=== PATIENT | female | born 1935 | race Hispanic/Latino ===

== ENCOUNTER 2017-10-04 18:53 | Emergency (ER) | payer MEDICARE ==
[2017-10-04 20:31] LABS: BASOPHILS % (AUTO) 0.9 % (0.0-5.0); EOSINOPHILS % (AUTO) 5.1 % (0.0-8.0); HEMATOCRIT 46.6 % (36-48); LYMPHOCYTES % (AUTO) 15.9 % (21.0-51.0); MEAN CORPUSCULAR HEMOGLOBIN 27.1 pg (27.0-33.0); MEAN CORPUSCULAR HGB CONC 32.7 g/dL (32.0-36.0); MEAN CORPUSCULAR VOLUME 82.8 fL (79-99); MONOCYTES % (AUTO) 10.1 % (3.0-13.0); PLATELET COUNT (AUTO) 590 K/uL (130-400); RED BLOOD CELL COUNT(AUTO) 5.63 MIL/uL (4.00-5.50); RED CELL DISTRIBUTION WIDTH 22.1 % (11.0-15.5); WHITE BLOOD COUNT (AUTO) 8.1 K/uL (4.8-10.8)
[2017-10-04 20:45] LABS: CREATININE 0.8 mg/dL (0.5-1.5)
[2017-10-04 20:47] LABS: APPEARANCE,URINE Clear (CLEAR); BILIRUBIN,URINE Negative (NEGATIVE); COLOR,URINE Yellow (YELLOW); GLUCOSE, URINE (UA) Negative (NEGATIVE); KETONES,URINE Negative (NEGATIVE); LEUKOCYTE ESTERASE ,URINE Negative (NEGATIVE); NITRATE,URINE Negative (NEGATIVE); OCCULT BLOOD,URINE Negative (NEGATIVE); PROTEIN,URINE Negative (NEGATIVE); UROBILINOGEN,URINE 0.2 mg/dL (0.2-1.0)
[2017-10-04 20:50] LABS: ALBUMIN 3.8 g/dL (3.5-5.0); BILIRUBIN,TOTAL 0.4 mg/dL (0.2-1.0); TOTAL PROTEIN, SERUM 7.3 g/dL (6.0-8.3)
[2017-10-04] MEDS ORDERED: SODIUM CHLORIDE 0.9% 1000ML 1,000 ML IV ONE (21:10)
[2017-10-04] MEDS ORDERED: ONDANSETRON HCL MDV 20ML 2 MG/ML VIAL ONE (21:11)
[2017-10-04] MEDS ORDERED: KETOROLAC TROMETHAMINE 30MG/ML ONE (21:11)
[2017-10-04] MEDS ORDERED: IOPAMIDOL-370 75 ML VIAL IV ONE (21:12)
== END 2017-10-04 22:59 | disposition home or self-care (01) ==
LOC: EDH 18:53
DX: K59.00 Constipation, unspecified (principal); D47.3 Essential (hemorrhagic) thrombocythemia; Z88.1 Allergy status to other antibiotic agents; Z88.6 Allergy status to analgesic agent; Z88.8 Allergy status to other drugs, medicaments and biological substances
CPT/HCPCS: 36415; 74177; 80053; 81003; 82550; 83690; 84484; 85025; 93005; 96361; 96374; 96375; 99285; J1885; J7030; Q9967

== ENCOUNTER → 2018-01-16 | Outpatient (CLI) | payer MEDICARE | END | disposition home or self-care (01) | LOC: RAH 10:24 | PROVIDERS: ATTEND Internal Medicine | DX: R60.9 Edema, unspecified (principal); I10 Essential (primary) hypertension | CPT/HCPCS: 93970 ==

== ENCOUNTER → 2018-10-01 | Outpatient (CLI) | payer MEDICARE | END | disposition home or self-care (01) | LOC: RAH 13:24 | PROVIDERS: ATTEND Internal Medicine | DX: N39.8 Other specified disorders of urinary system (principal); N89.4 Leukoplakia of vagina; R32 Unspecified urinary incontinence | CPT/HCPCS: 76770 ==

== ENCOUNTER → 2018-12-05 | Outpatient (CLI) | payer MEDICARE | END | disposition home or self-care (01) | LOC: RAH 08:49 | PROVIDERS: ATTEND Internal Medicine | DX: R10.11 Right upper quadrant pain (principal) | CPT/HCPCS: 76700 ==

== ENCOUNTER 2019-04-15 14:14 | Inpatient (IN) | payer MEDICARE ==
[~2019-04-15] VITALS: Ht 157.5 cm; Wt 49.7 kg
[2019-04-15] MEDS ORDERED: ACETAMINOPHEN EXTRA STRENGTH 500 MG TABLET ONE (16:36)
[2019-04-15 16:45] LABS: BASOPHILS % (AUTO) 1.9 % (0.0-5.0); EOSINOPHILS % (AUTO) 2.5 % (0.0-8.0); HEMATOCRIT 43.5 % (36-48); LYMPHOCYTES % (AUTO) 15.5 % (21.0-51.0); MEAN CORPUSCULAR HEMOGLOBIN 28.8 pg (27.0-33.0); MEAN CORPUSCULAR HGB CONC 31.9 g/dL (32.0-36.0); MEAN CORPUSCULAR VOLUME 90.4 fL (79-99); MONOCYTES % (AUTO) 9.3 % (3.0-13.0); NEUTROPHILS % (AUTO) 70.8 % (40.0-77.0); NUCLEATED RED BLOOD CELLS 0.2 % (0.0-0.19); PLATELET COUNT (AUTO) 355 K/uL (130-400); RED BLOOD CELL COUNT(AUTO) 4.81 MIL/uL (4.00-5.50); RED CELL DISTRIBUTION WIDTH 20.7 % (11.0-15.5); WHITE BLOOD COUNT (AUTO) 7.3 K/uL (4.8-10.8)
[2019-04-15 16:59] LABS: CREATININE 0.6 mg/dL (0.5-1.5); POTASSIUM 4.3 mmol/L (3.5-5.1)
[2019-04-15 17:04] LABS: ALBUMIN 4.1 g/dL (3.5-5.0); BILIRUBIN,TOTAL 0.6 mg/dL (0.2-1.0); TOTAL PROTEIN, SERUM 7.2 g/dL (6.0-8.3)
[2019-04-15 17:19] LABS: INR 1.02 (0.85-1.15); PARTIAL THROMBOPLASTIN TIME 30.8 SEC (26.3-35.5); PROTHROMBIN TIME 10.7 SEC (9.6-11.6)
[2019-04-15] MEDS ORDERED: MORPHINE SULFATE 2 MG/ML 1ML SYG IV PRN (18:00)
[2019-04-15] MEDS ORDERED: HYDROCODONE/ACETAMINOPHEN 5/325 MG TAB PO PRN (18:00)
[2019-04-15] MEDS ORDERED: LACTULOSE 20 GM/30 ML UDCUP PO PRN (18:00)
[2019-04-15] MEDS ORDERED: ONDANSETRON HCL 4 MG/2 ML VIAL IV PRN (18:00)
[2019-04-15] MEDS: SODIUM CHLORIDE 0.9% 1000ML 1,000 ML IV SCH (21:22)
[2019-04-15] MEDS: ACETAMINOPHEN 325 MG TAB PO PRN (23:49)
[2019-04-16] VITALS (25 sets, daily range): BP systolic 114–152; BP diastolic 58–89
[2019-04-16 03:56] LABS: BASOPHILS % (AUTO) 2.4 % (0.0-5.0); EOSINOPHILS % (AUTO) 2.5 % (0.0-8.0); HEMATOCRIT 38.1 % (36-48); LYMPHOCYTES % (AUTO) 17.6 % (21.0-51.0); MEAN CORPUSCULAR HEMOGLOBIN 29.3 pg (27.0-33.0); MEAN CORPUSCULAR HGB CONC 32.3 g/dL (32.0-36.0); MEAN CORPUSCULAR VOLUME 90.7 fL (79-99); MONOCYTES % (AUTO) 13.3 % (3.0-13.0); NEUTROPHILS % (AUTO) 64.2 % (40.0-77.0); NUCLEATED RED BLOOD CELLS 0.1 % (0.0-0.19); PLATELET COUNT (AUTO) 309 K/uL (130-400); RED BLOOD CELL COUNT(AUTO) 4.21 MIL/uL (4.00-5.50); RED CELL DISTRIBUTION WIDTH 20.2 % (11.0-15.5)
[2019-04-16] MEDS ORDERED: HYDR500C2 PO (04:05)
[2019-04-16] MEDS ORDERED: FOLI1TAB15 PO (04:05)
[2019-04-16] MEDS ORDERED: LIFI1DRO OP (04:09)
[2019-04-16 04:12] LABS: CREATININE 0.6 mg/dL (0.5-1.5); POTASSIUM 3.9 mmol/L (3.5-5.1)
[2019-04-16] MEDS ORDERED: HYDRALAZINE HCL 20 MG/ML VIAL IV PRN ×2 (04:15→05:30)
--- NOTE | 2019-04-16 07:30 | NUR ---
AM NOTE Awake, alert, and oriented x3. Assisted to bathroom, steady gait noted. Dr. Corea in to see pt, update given, new orders received and will carry out. Instructed on use of call light, verbalized understanding. Sinus mechanism in 80s.
[2019-04-16] MEDS: FAMOTIDINE/PF 20 MG/2 ML VIAL IV SCH (08:03)
[2019-04-16] MEDS: ACETAMINOPHEN 325 MG TAB PO PRN (08:09)
[2019-04-16] MEDS: SODIUM CHLORIDE 0.9% 1000ML 1,000 ML IV SCH (10:18)
--- NOTE | 2019-04-16 11:30 | NUR ---
DYSPHAGIA EVCATIA COMPLETED. -S/S OF ASPIRATION. RECOMMEND REGULAR TEXTURE, THIN LIQUIDS, PILLS WHOLE WITH LIQUIDS. Addendum: 04/17/19 at 0710 by RACHNA NIÑO, [facility] Amended: Links added.
--- NOTE | 2019-04-16 14:06 | NUR ---
DC PLAN VISITED WITH PATIENT. PATIENT LIVES WITH SPOUSE. INDEPENDENT ABLE TO PERFORM SOME ADL'S. PATIENT HAS PROVIDER 33 HRS A WEEK. USES A CANE. FEELS SAFE TOR RETURN HOME. Addendum: 04/16/19 at 1407 by MATHEUS MACK RN CM Amended: Links added.
[2019-04-16] MEDS ORDERED: FOLIC ACID 1 MG TABLET PO SCH (21:00)
[2019-04-17] VITALS: BP 151/72
[2019-04-17 04:00] VITALS: BP 142/79
[2019-04-17] MEDS: ACETAMINOPHEN 325 MG TAB PO PRN (05:11)
[2019-04-17 07:32] VITALS: BP 145/89
[2019-04-17] MEDS ORDERED: HYDROXYUREA 500 MG CAP PO SCH (09:00)
[2019-04-17] MEDS: FAMOTIDINE/PF 20 MG/2 ML VIAL IV SCH (09:18)
[2019-04-17 11:00] VITALS: BP 135/75
== END 2019-04-17 17:00 | disposition home or self-care (01) | DRG 87 ==
LOC: EDH 14:14 → EDHIP 17:47 → 2BH 20:07 → 4BH 04-16 23:02
PROVIDERS: ADMIT Internal Medicine; ATTEND Internal Medicine
DX: S06.5X0A Traumatic subdural hemorrhage without loss of consciousness, initial encounter (principal); E04.2 Nontoxic multinodular goiter; E78.5 Hyperlipidemia, unspecified; I10 Essential (primary) hypertension; M19.90 Unspecified osteoarthritis, unspecified site; M47.812 Spondylosis without myelopathy or radiculopathy, cervical region; W01.0XXA Fall on same level from slipping, tripping and stumbling without subsequent striking against object, initial encounter; Y93.89 Activity, other specified; Y92.89 Other specified places as the place of occurrence of the external cause; Y99.8 Other external cause status; Z85.3 Personal history of malignant neoplasm of breast; Z88.0 Allergy status to penicillin; Z88.8 Allergy status to other drugs, medicaments and biological substances
CPT/HCPCS: 36415; 70450; 72125; 73110; 73521; 80048; 80053; 85025; 85610; 85730; 92610; 93005; G0378; J3490; J7030

== ENCOUNTER → 2019-04-29 | Outpatient (CLI) | payer MEDICARE ==
[~2019-04-29] MED LIST: FOLI1TAB15 PO; HYDR500C2 PO; LIFI1DRO OP
== END | disposition home or self-care (01) ==
LOC: RAH 10:58
PROVIDERS: ATTEND Neurological Surgery
DX: G31.9 Degenerative disease of nervous system, unspecified (principal); S06.5X0A Traumatic subdural hemorrhage without loss of consciousness, initial encounter; R90.82 White matter disease, unspecified; X58.XXXA Exposure to other specified factors, initial encounter; Y93.89 Activity, other specified; Y92.89 Other specified places as the place of occurrence of the external cause; Y99.8 Other external cause status
CPT/HCPCS: 70450

== ENCOUNTER 2019-05-17 14:38 | Inpatient (IN) | payer MEDICARE ==
[~2019-05-17] VITALS: Ht 160 cm; Wt 46.6 kg
[~2019-05-17 14:38] MED LIST changes: -ASPI-555 PO; -FOLIC ACID PO
[2019-05-17] MEDS ORDERED: ENOXAPARIN SODIUM 60 MG/0.6 ML SQ ONE (17:13)
[2019-05-17 17:36] LABS: CREATININE 0.7 mg/dL (0.5-1.5); POTASSIUM 4.7 mmol/L (3.5-5.1)
[2019-05-17 17:38] LABS: BASOPHILS % (AUTO) 2.9 % (0.0-5.0); EOSINOPHILS % (AUTO) 3.3 % (0.0-8.0); HEMATOCRIT 40.2 % (36-48); INR 1.05 (0.85-1.15); LYMPHOCYTES % (AUTO) 17.7 % (21.0-51.0); MEAN CORPUSCULAR HEMOGLOBIN 29.4 pg (27.0-33.0); MEAN CORPUSCULAR HGB CONC 31.8 g/dL (32.0-36.0); MEAN CORPUSCULAR VOLUME 92.5 fL (79-99); MONOCYTES % (AUTO) 14.9 % (3.0-13.0); NEUTROPHILS % (AUTO) 61.2 % (40.0-77.0); NUCLEATED RED BLOOD CELLS 0.2 % (0.0-0.19); PARTIAL THROMBOPLASTIN TIME 31.7 SEC (26.3-35.5); RED BLOOD CELL COUNT(AUTO) 4.35 MIL/uL (4.00-5.50); RED CELL DISTRIBUTION WIDTH 24.2 % (11.0-15.5)
[2019-05-17 17:40] LABS: BILIRUBIN,TOTAL 0.5 mg/dL (0.2-1.0); PLATELET COUNT (AUTO) 801 K/uL (130-400); TOTAL PROTEIN, SERUM 7.6 g/dL (6.0-8.3)
[2019-05-17 18:40] VITALS: BP 176/81
[2019-05-17] MEDS ORDERED: PHARMACY COMMUNICATION MISC SCH (19:15)
[2019-05-17] MEDS ORDERED: SODIUM CHLORIDE 0.9% 10 ML VIAL IVP PRN (19:15)
[2019-05-17] MEDS ORDERED: ACETAMINOPHEN 325 MG TAB PO PRN (19:15)
[2019-05-17] MEDS ORDERED: ONDANSETRON HCL 4 MG/2 ML VIAL IVP PRN (19:15)
[2019-05-17] MEDS ORDERED: TEMAZEPAM 7.5 MG CAPSULE PO PRN (19:15)
--- NOTE | 2019-05-17 19:50 | NUR ---
Admission assessment Only report received from Yanet DAVIS that pt came up from [facility] at 1830. Chart reviewed, meet with the pt, noted alone, no family initially. Routine admission assessment done, plan of care discuss, currently denies discomfort. Per pt claimed that her problem is her bilateral lower extremities. Noted +2 edema which pt claimed swelling much better at this time. Pt instructed on complete bedrest due to (+) DVT. Pt declined to use the bedpan, provided BSC, agreed. Pt declined to signed any of the admission papers prefers for her sister to sign which she will be coming in later. Pt noted very poor historian, everything she prefers for me to ask her sister Clara.
--- NOTE | 2019-05-17 20:00 | NUR ---
Re: Pt's sister Pt's sister Clara Arzola # [phone] showed up at this time, obtained family history, able to complete admission data base by verifying with pt's previous admission. Stated she does take care of the pt at home. Home medication updated, stated that pt has been seeing Dr. Beltrán re: thrombocytopenia & is on Hydroxyurea. Re: Flu / Pneumonia vaccination, stated pt is current.
[2019-05-17] MEDS ORDERED: ACETAMINOPHEN 325 MG TAB ONE (20:18)
[2019-05-17] MEDS ORDERED: FOLIC ACID PO ×2 (20:52)
[2019-05-17] MEDS ORDERED: LIFI1DRO OP ×2 (20:52)
[2019-05-17] MEDS ORDERED: ASPI-555 PO ×2 (20:52)
[2019-05-17 23:38] VITALS: BP 133/71
[2019-05-18 03:20] VITALS: BP 133/77
[2019-05-18] MEDS ORDERED: ACETAMINOPHEN 325 MG TAB PO PRN ×2 (04:45)
[2019-05-18 08:00] VITALS: BP 152/80
[2019-05-18] MEDS: ENOXAPARIN SODIUM 60 MG/0.6 ML SQ SCH ×2 (09:30→20:57)
[2019-05-18 11:00] VITALS: BP 130/67
[2019-05-18] MEDS ORDERED: HYDROXYUREA 500 MG CAP PO SCH ×3 (13:15→17:00)
[2019-05-18 16:00] VITALS: BP 136/79
--- NOTE | 2019-05-18 16:08 | NUR ---
HEMATOLOGY CONSULT Dr. Beltrán was called and notified of consult. Stated he will come to evaluate patient.
--- NOTE | 2019-05-18 16:08 | NUR ---
INITIAL: Met w pt and sister Clara this afternoon to discuss dcp. Prior to admission pt was living w her sisters. She uses a cane or walker for ambulation. She requires assistance w ADLs. Pt has provider services but is unable to recall #hrs. Per pt and sister they feel safe and comfortable returning home at the time of discharge. CM to continue to follow and wait for Md recommendations. Addendum: 05/18/19 at 1610 by ESTELA GARCIA CM Amended: Links added.
[2019-05-18] MEDS ORDERED: FOLIC ACID 1 MG TABLET PO SCH (17:00)
[2019-05-18] MEDS ORDERED: LACTULOSE 20 GM/30 ML UDCUP PO PRN (20:15)
[2019-05-18 20:43] VITALS: BP 152/85
[2019-05-18 23:57] VITALS: BP 136/81
[2019-05-19 04:05] VITALS: BP 145/81
[2019-05-19 05:00] LABS: BASOPHILS % (AUTO) 2.2 % (0.0-5.0); HEMATOCRIT 38.2 % (36-48); LYMPHOCYTES % (AUTO) 23.6 % (21.0-51.0); MEAN CORPUSCULAR HEMOGLOBIN 29.2 pg (27.0-33.0); MEAN CORPUSCULAR HGB CONC 31.8 g/dL (32.0-36.0); MEAN CORPUSCULAR VOLUME 91.8 fL (79-99); MONOCYTES % (AUTO) 15.7 % (3.0-13.0); NEUTROPHILS % (AUTO) 54.5 % (40.0-77.0); NUCLEATED RED BLOOD CELLS 0.1 % (0.0-0.19); PLATELET COUNT (AUTO) 691 K/uL (130-400); RED BLOOD CELL COUNT(AUTO) 4.17 MIL/uL (4.00-5.50); RED CELL DISTRIBUTION WIDTH 23.4 % (11.0-15.5); WHITE BLOOD COUNT (AUTO) 7.8 K/uL (4.8-10.8)
[2019-05-19 05:08] LABS: CREATININE 0.7 mg/dL (0.5-1.5); POTASSIUM 4.5 mmol/L (3.5-5.1)
[2019-05-19 05:48] LABS: PLATELET MORPHOLOGY LARGE PLTS PRESENT
[2019-05-19 07:58] VITALS: BP 135/72
[2019-05-19] MEDS ORDERED: HYDROXYUREA 500 MG CAP PO SCH ×2 (09:00)
[2019-05-19] MEDS ORDERED: XIIDRA PO SCH (09:00)
[2019-05-19] MEDS ORDERED: ASPIRIN 81 MG EC TAB PO SCH (09:00)
--- NOTE | 2019-05-19 10:00 | NUR ---
DR. OLMOS Paged Dr. Olmos again to notify him of patient's history of subdural hematoma. Pending for him to come back.
[2019-05-19 11:00] VITALS: BP 123/70
--- NOTE | 2019-05-19 11:34 | NUR ---
FOOD SERVICE SPECIALIST VISIT Dr. Beltrán came to see patient and he was updated on Hx of subdural hematoma. Stated he checked the images of the report for legs and that patient does not have DVTs, only superficial blood clots and to stop lovenox S/T risk. To continue on aspirin, hydroxyurea and folic acid. He asked to tell IS PROJECT MANAGER Brooklynn Simmons to call him and she was updated. Patient's sister was not present in the room; she will be updated when she comes back.
[2019-05-19 16:00] VITALS: BP 154/86
== END 2019-05-19 17:20 | disposition home or self-care (01) | DRG 301 ==
LOC: EDH 14:38 → 3AH 17:31
PROVIDERS: ADMIT Internal Medicine; ATTEND Internal Medicine
DX: I80.03 Phlebitis and thrombophlebitis of superficial vessels of lower extremities, bilateral (principal); I10 Essential (primary) hypertension; D47.3 Essential (hemorrhagic) thrombocythemia; M19.90 Unspecified osteoarthritis, unspecified site; Z86.73 Personal history of transient ischemic attack (TIA), and cerebral infarction without residual deficits; Z88.0 Allergy status to penicillin; Z88.8 Allergy status to other drugs, medicaments and biological substances
CPT/HCPCS: 36415; 80048; 80053; 85025; 85610; 85730; G0378; J1650

== ENCOUNTER → 2019-05-17 | Outpatient (CLI) | payer MEDICARE ==
[~2019-05-17] MED LIST changes: +ASPI-555 PO; +FOLIC ACID PO
== END | disposition home or self-care (01) ==
LOC: RAH 13:04
PROVIDERS: ATTEND Internal Medicine
DX: I82.4Z3 Acute embolism and thrombosis of unspecified deep veins of distal lower extremity, bilateral (principal)
CPT/HCPCS: 93970

== ENCOUNTER 2019-12-14 12:08 | Inpatient (IN) | payer MEDICARE ==
[~2019-12-14] VITALS: Ht 162.6 cm; Wt 52.4 kg
[~2019-12-14 12:08] MED LIST changes: +ASPI-556 PO; -FOLI1TAB15 PO; +FOLIC ACID PO
[2019-12-14 12:47] LABS: INR 1.02 (0.85-1.15); PARTIAL THROMBOPLASTIN TIME 27.8 SEC (26.3-35.5)
[2019-12-14 12:53] LABS: CREATININE 0.8 mg/dL (0.5-1.5); POTASSIUM 4.2 mmol/L (3.5-5.1)
[2019-12-14 12:56] LABS: BASOPHILS % (AUTO) 0.2 % (0.0-5.0); EOSINOPHILS % (AUTO) 2.5 % (0.0-8.0); LYMPHOCYTES % (AUTO) 14.8 % (21.0-51.0); MEAN CORPUSCULAR HEMOGLOBIN 32.5 pg (27.0-33.0); MEAN CORPUSCULAR HGB CONC 30.7 g/dL (32.0-36.0); MONOCYTES % (AUTO) 15.9 % (3.0-13.0); NEUTROPHILS % (AUTO) 57.6 % (40.0-77.0); NUCLEATED RED BLOOD CELLS 0.7 % (0.0-0.19); RED BLOOD CELL COUNT(AUTO) 1.66 MIL/uL (4.00-5.50); RED CELL DISTRIBUTION WIDTH 24.3 % (11.0-15.5); WHITE BLOOD COUNT (AUTO) 8.9 K/uL (4.8-10.8)
[2019-12-14 13:03] LABS: ALBUMIN 3.7 g/dL (3.5-5.0); BILIRUBIN,TOTAL 0.5 mg/dL (0.2-1.0); TOTAL PROTEIN, SERUM 6.5 g/dL (6.0-8.3)
[2019-12-14 13:03] LABS: HEMATOCRIT 17.6 % (36-48); PLATELET COUNT (AUTO) 8 K/uL (130-400)
[2019-12-14 14:11] LABS: PLATELET MORPHOLOGY COMMENT MARKED DECREASE
[2019-12-14] MEDS ORDERED: SODIUM CHLORIDE 0.9% 250 ML IV ONE ×2 (16:59→23:57)
[2019-12-14] MEDS ORDERED: ACETAMINOPHEN 325 MG TAB PO PRN (17:15)
[2019-12-14 19:00] VITALS: BP 146/79
[2019-12-14] MEDS: FAMOTIDINE/PF 20 MG/2 ML VIAL IV SCH (20:33)
[2019-12-14 23:00] VITALS: BP 135/69
[2019-12-14 23:35] LABS: HEMATOCRIT 21.5 % (36-48)
[2019-12-15 03:00] VITALS: BP 130/67
[2019-12-15 05:05] LABS: BASOPHILS % (AUTO) 0.3 % (0.0-5.0); EOSINOPHILS % (AUTO) 0.2 % (0.0-8.0); HEMATOCRIT 24.4 % (36-48); LYMPHOCYTES % (AUTO) 13.3 % (21.0-51.0); MEAN CORPUSCULAR HEMOGLOBIN 31.8 pg (27.0-33.0); MEAN CORPUSCULAR HGB CONC 33.2 g/dL (32.0-36.0); MEAN CORPUSCULAR VOLUME 95.7 fL (79-99); MONOCYTES % (AUTO) 15.3 % (3.0-13.0); NEUTROPHILS % (AUTO) 61.2 % (40.0-77.0); NUCLEATED RED BLOOD CELLS 1.1 % (0.0-0.19); PLATELET COUNT (AUTO) 40 K/uL (130-400); RED BLOOD CELL COUNT(AUTO) 2.55 MIL/uL (4.00-5.50); RED CELL DISTRIBUTION WIDTH 21.6 % (11.0-15.5); WHITE BLOOD COUNT (AUTO) 9.4 K/uL (4.8-10.8)
[2019-12-15 05:26] LABS: ALBUMIN 3.3 g/dL (3.5-5.0); BILIRUBIN,TOTAL 1.1 mg/dL (0.2-1.0); CREATININE 0.6 mg/dL (0.5-1.5); POTASSIUM 3.9 mmol/L (3.5-5.1)
[2019-12-15 07:49] VITALS: BP 140/72
[2019-12-15] MEDS: FAMOTIDINE/PF 20 MG/2 ML VIAL IV SCH ×2 (08:38→20:30)
--- NOTE | 2019-12-15 11:45 | NUR ---
Pt was found confuse walking outside her room by Nancy Gupta NP and immediately was place back in her bed. After several question pt recognized that she was confused and verbalized she was sorry. Two hours later she was found confuse again walking out the room. USHA Gupta aware is aware of the situation.
[2019-12-15 12:00] VITALS: BP 136/72
[2019-12-15 16:29] VITALS: BP 133/71
--- NOTE | 2019-12-15 17:23 | NUR ---
D/C PLAN CM spoke to patient's sister named Clara Arzola. Pt is currently with [facility]. States pt lives with her sister who is also her provider. Denies having any home health. Reports patient has wk, w/c, cane, shower chair, and bsc. CM discussed possible short term snf/rehab. Sister declined at this time. Prefers to take pt home. CM to f/u. Addendum: 12/15/19 at 1726 by KRISH ANDERSON CM Amended: Links added.
[2019-12-15 19:00] VITALS: BP 148/70
[2019-12-15 22:58] VITALS: BP 139/64
[2019-12-16 03:00] VITALS: BP 137/70
[2019-12-16 05:21] LABS: BASOPHILS % (AUTO) 0.5 % (0.0-5.0); EOSINOPHILS % (AUTO) 1.4 % (0.0-8.0); LYMPHOCYTES % (AUTO) 10.6 % (21.0-51.0); MEAN CORPUSCULAR HEMOGLOBIN 31.2 pg (27.0-33.0); MEAN CORPUSCULAR HGB CONC 32.8 g/dL (32.0-36.0); MEAN CORPUSCULAR VOLUME 95.1 fL (79-99); NEUTROPHILS % (AUTO) 57.1 % (40.0-77.0); NUCLEATED RED BLOOD CELLS 0.7 % (0.0-0.19); PLATELET COUNT (AUTO) 21 K/uL (130-400); RED BLOOD CELL COUNT(AUTO) 2.63 MIL/uL (4.00-5.50); WHITE BLOOD COUNT (AUTO) 8.8 K/uL (4.8-10.8)
[2019-12-16 05:41] LABS: ALBUMIN 3.2 g/dL (3.5-5.0); BILIRUBIN,TOTAL 1.4 mg/dL (0.2-1.0); CREATININE 0.7 mg/dL (0.5-1.5); POTASSIUM 3.6 mmol/L (3.5-5.1); TOTAL PROTEIN, SERUM 6.1 g/dL (6.0-8.3)
[2019-12-16 08:28] VITALS: BP 126/63
[2019-12-16] MEDS: FAMOTIDINE/PF 20 MG/2 ML VIAL IV SCH ×2 (09:22→21:25)
[2019-12-16 11:16] VITALS: BP 122/58
[2019-12-16 16:00] VITALS: BP 122/61
[2019-12-16 20:22] VITALS: BP 114/69
[2019-12-16 23:23] VITALS: BP 142/75
[2019-12-17] VITALS (7 sets, daily range): BP systolic 63–150; BP diastolic 59–74
[2019-12-17 05:59] LABS: BASOPHILS % (AUTO) 0.3 % (0.0-5.0); HEMATOCRIT 25.1 % (36-48); LYMPHOCYTES % (AUTO) 15.4 % (21.0-51.0); MEAN CORPUSCULAR HGB CONC 32.3 g/dL (32.0-36.0); MEAN CORPUSCULAR VOLUME 96.2 fL (79-99); MONOCYTES % (AUTO) 17.5 % (3.0-13.0); NEUTROPHILS % (AUTO) 58.3 % (40.0-77.0); NUCLEATED RED BLOOD CELLS 0.7 % (0.0-0.19); PLATELET COUNT (AUTO) 18 K/uL (130-400); RED BLOOD CELL COUNT(AUTO) 2.61 MIL/uL (4.00-5.50); RED CELL DISTRIBUTION WIDTH 22.4 % (11.0-15.5); WHITE BLOOD COUNT (AUTO) 5.7 K/uL (4.8-10.8)
[2019-12-17 06:15] LABS: ALBUMIN 3.1 g/dL (3.5-5.0); BILIRUBIN,TOTAL 0.9 mg/dL (0.2-1.0); CREATININE 0.7 mg/dL (0.5-1.5); POTASSIUM 3.7 mmol/L (3.5-5.1)
[2019-12-17] MEDS: FOLIC ACID 1 MG TABLET PO SCH (09:23)
[2019-12-17] MEDS: FAMOTIDINE/PF 20 MG/2 ML VIAL IV SCH ×2 (09:23→21:19)
[2019-12-17] MEDS: POLYETHYLENE GLYCOL 3350 17 GM POWD.PACK PO SCH (17:33)
[2019-12-18 04:05] VITALS: BP 139/65
[2019-12-18 04:55] LABS: HEMATOCRIT 27.3 % (36-48); MEAN CORPUSCULAR HEMOGLOBIN 30.5 pg (27.0-33.0); MEAN CORPUSCULAR HGB CONC 31.5 g/dL (32.0-36.0); MEAN CORPUSCULAR VOLUME 96.8 fL (79-99); NUCLEATED RED BLOOD CELLS 0.7 % (0.0-0.19); RED BLOOD CELL COUNT(AUTO) 2.82 MIL/uL (4.00-5.50); RED CELL DISTRIBUTION WIDTH 21.9 % (11.0-15.5)
[2019-12-18 05:32] LABS: PLATELET COUNT (AUTO) 9 K/uL (130-400)
--- NOTE | 2019-12-18 05:40 | NUR ---
CRITICAL LAB VALUES PLT 8. PAGED INDUSTRIAL PSYCHOLOGIST. PENDING BELINDA JAUREGUI TO RETURN PAGE.
--- NOTE | 2019-12-18 05:54 | NUR ---
HUI RETURNED PAGE CRITICAL PLT RESULTS GIVEN TO BELINDA YEUNG. GAMAL ORDERED ONE UNIT OF PLATELET TRANSFUSION.
--- NOTE | 2019-12-18 06:40 | NUR ---
CONSENT FOR BLOOD AND BLOOD PRODUCTS RECEIVED OVER THE PHONE FROM SISTER HAYLIE GUY. PATRICK DAVIS WITNESSED TELEPHONE CONSENT FOR PLATELETS TODAY.
[2019-12-18 07:00] VITALS: BP 141/67
--- NOTE | 2019-12-18 07:19 | NUR ---
REPORT GIVEN TO HI DAVIS. NURSE INFORMED OF PENDING PLATELET TRANSFUSION. NURSE TO ASSUME PT CARE.
[2019-12-18] MEDS: FAMOTIDINE/PF 20 MG/2 ML VIAL IV SCH ×2 (10:28→20:04)
[2019-12-18] MEDS: FOLIC ACID 1 MG TABLET PO SCH (10:28)
[2019-12-18] MEDS: POLYETHYLENE GLYCOL 3350 17 GM POWD.PACK PO SCH (10:28)
[2019-12-18 11:00] VITALS: BP 143/71
[2019-12-18 15:20] VITALS: BP 123/79
[2019-12-18 19:25] VITALS: BP 149/61
[2019-12-18 23:20] VITALS: BP 120/54
[2019-12-19 04:10] VITALS: BP 104/50
[2019-12-19 05:32] LABS: BASOPHILS % (AUTO) 0.4 % (0.0-5.0); EOSINOPHILS % (AUTO) 0.2 % (0.0-8.0); LYMPHOCYTES % (AUTO) 22.6 % (21.0-51.0); MEAN CORPUSCULAR HEMOGLOBIN 30.8 pg (27.0-33.0); MEAN CORPUSCULAR HGB CONC 31.2 g/dL (32.0-36.0); MEAN CORPUSCULAR VOLUME 98.8 fL (79-99); MONOCYTES % (AUTO) 19.8 % (3.0-13.0); NEUTROPHILS % (AUTO) 49.3 % (40.0-77.0); NUCLEATED RED BLOOD CELLS 0.5 % (0.0-0.19); PLATELET COUNT (AUTO) 36 K/uL (130-400); RED BLOOD CELL COUNT(AUTO) 2.53 MIL/uL (4.00-5.50); RED CELL DISTRIBUTION WIDTH 21.8 % (11.0-15.5); WHITE BLOOD COUNT (AUTO) 5.6 K/uL (4.8-10.8)
[2019-12-19 07:00] VITALS: BP 115/60
[2019-12-19] MEDS: POLYETHYLENE GLYCOL 3350 17 GM POWD.PACK PO SCH (09:46)
[2019-12-19] MEDS: FAMOTIDINE/PF 20 MG/2 ML VIAL IV SCH ×2 (09:46→20:16)
[2019-12-19] MEDS: FOLIC ACID 1 MG TABLET PO SCH (09:46)
[2019-12-19 11:00] VITALS: BP 110/57
[2019-12-19 16:00] VITALS: BP 126/60
--- NOTE | 2019-12-19 17:53 | NUR ---
DENIES ANY DISTRESS, RESTING POST DINNER. SISTER AT BEDSIDE VISITING. UPDATED WITH STATUS AND PLAN OF CARE PER DR. ROGERS. DR. HERNANDEZ IN TO SEE Pt, IN CONFERENCE WITH SISTER TO UPDATE HER OF PLAN OF CARE. WAS SEEN BY DR. ROGERS TODAY, NO NEW ORDERS FOR TODAY. LABS ORDERED. STABLE.
[2019-12-19 19:48] VITALS: BP 114/57
[2019-12-19 23:38] VITALS: BP 121/53
[2019-12-20 03:07] VITALS: BP 119/50
[2019-12-20 05:30] LABS: BASOPHILS % (AUTO) 0.3 % (0.0-5.0); EOSINOPHILS % (AUTO) 0.2 % (0.0-8.0); HEMATOCRIT 25.7 % (36-48); LYMPHOCYTES % (AUTO) 19.5 % (21.0-51.0); MEAN CORPUSCULAR HEMOGLOBIN 30.3 pg (27.0-33.0); MEAN CORPUSCULAR HGB CONC 30.7 g/dL (32.0-36.0); MEAN CORPUSCULAR VOLUME 98.5 fL (79-99); MONOCYTES % (AUTO) 16.6 % (3.0-13.0); NEUTROPHILS % (AUTO) 54.2 % (40.0-77.0); NUCLEATED RED BLOOD CELLS 0.6 % (0.0-0.19); PLATELET COUNT (AUTO) 27 K/uL (130-400); RED BLOOD CELL COUNT(AUTO) 2.61 MIL/uL (4.00-5.50); RED CELL DISTRIBUTION WIDTH 21.5 % (11.0-15.5); WHITE BLOOD COUNT (AUTO) 6.4 K/uL (4.8-10.8)
[2019-12-20 08:00] VITALS: BP 123/60
[2019-12-20] MEDS: FAMOTIDINE/PF 20 MG/2 ML VIAL IV SCH ×2 (09:43→21:29)
[2019-12-20] MEDS: FOLIC ACID 1 MG TABLET PO SCH (09:44)
[2019-12-20] MEDS: POLYETHYLENE GLYCOL 3350 17 GM POWD.PACK PO SCH (09:44)
[2019-12-20 12:00] VITALS: BP 131/71
[2019-12-20 16:00] VITALS: BP 143/72
--- NOTE | 2019-12-20 16:39 | NUR ---
MALNUTRITION EDUCATION RD provided Malnutrition education. RD discussed weight loss and appetite. Pt requested Handout in Arabic, although demonstrated proficient Wallisian speaking. Wallisian handout accepted for Pt's daughter, Arabic materials also printed for mother. RD answered all Pt questions. Pt verbalized understanding. Nutrition Note: Pt with Low BMI for age (BMI 19.1). Pt reports previous decreased appetite and recent weight loss. RD discussed malnutrition goals with Pt and food preferences. Pt does have improved appetite. Pt also willing to try Ensure. RD to continue to monitor. Please notify as additional nutrition concerns arise. Thank you. Addendum: 12/20/19 at [address] RD Amended: Links added.
[2019-12-20 21:09] VITALS: BP 135/68
[2019-12-21 01:50] VITALS: BP 135/62
[2019-12-21 04:22] VITALS: BP 108/58
[2019-12-21 05:25] LABS: BASOPHILS % (AUTO) 0.5 % (0.0-5.0); EOSINOPHILS % (AUTO) 0.2 % (0.0-8.0); HEMATOCRIT 25.1 % (36-48); LYMPHOCYTES % (AUTO) 19.7 % (21.0-51.0); MEAN CORPUSCULAR HEMOGLOBIN 30.4 pg (27.0-33.0); MEAN CORPUSCULAR HGB CONC 30.7 g/dL (32.0-36.0); MEAN CORPUSCULAR VOLUME 99.2 fL (79-99); MONOCYTES % (AUTO) 20.9 % (3.0-13.0); NUCLEATED RED BLOOD CELLS 0.6 % (0.0-0.19); PLATELET COUNT (AUTO) 19 K/uL (130-400); RED BLOOD CELL COUNT(AUTO) 2.53 MIL/uL (4.00-5.50); WHITE BLOOD COUNT (AUTO) 6.5 K/uL (4.8-10.8)
[2019-12-21 08:00] VITALS: BP 124/60
[2019-12-21] MEDS: FAMOTIDINE/PF 20 MG/2 ML VIAL IV SCH (09:34)
[2019-12-21] MEDS: POLYETHYLENE GLYCOL 3350 17 GM POWD.PACK PO SCH (09:34)
[2019-12-21] MEDS: FOLIC ACID 1 MG TABLET PO SCH (09:34)
--- NOTE | 2019-12-21 11:30 | NUR ---
PT TO RECEIVE TRANSFUSION OF 1 UNIT OF PLATELETS ORDERED BY DR HERNANDEZ. CONSENT VERIFIED AND IN CHART. BLOOD PRODUCT (PLATELETS) VERIFIED BY RYAN LORENZO AND MYSELF, BERNY POZO.
--- NOTE | 2019-12-21 11:40 | NUR ---
NO REACTION TO BLOOD PRODUCTS NOTED. PT DENIES ANY DISCOMFORT. VITAL SIGNS STABLE, WILL CONTINUE TO MONITOR.
[2019-12-21 12:00] VITALS: BP 139/60
[2019-12-21 16:00] VITALS: BP 125/66
--- NOTE | 2019-12-21 18:38 | NUR ---
PT WAS DISCHARGED HOME PER MD ORDERS. REMOVED PIV, TIP INTACT. TELE MONITOR REMOVED. INSTRUCTIONS GIVEN TO PT AND TO DEEPTI WALTER (SIBLING-CAREGIVER). THEY WERE INSTRUCTED TO F/U WITH DR OLMOS MONDAY OR MONDAY OF NEXT WEEK REQUESTED BY DR OLMOS AND TO STOP TAKING HYDROXYUREA ORDERED BY MD. AND TO FOLLOW UP WITH PCP. STATED UNDERSTANDING.
== END 2019-12-21 18:50 | disposition home or self-care (01) | DRG 391 ==
LOC: EDH 12:08 → EDHIP 17:14 → 4AH 19:46 → 4DH 12-15 18:25 → 3DH 12-20 00:27
PROVIDERS: ADMIT Hospitalist; ATTEND Hospitalist
PROC: 30233R1 Transfusion of Nonautologous Platelets into Peripheral Vein, Percutaneous Approach (ICD-10-PCS; principal; 2019-12-14)
PROC: 30233N1 Transfusion of Nonautologous Red Blood Cells into Peripheral Vein, Percutaneous Approach (ICD-10-PCS; 2019-12-14)
DX: K21.9 Gastro-esophageal reflux disease without esophagitis (principal); G93.41 Metabolic encephalopathy; C94.6 Myelodysplastic disease, not elsewhere classified; D47.3 Essential (hemorrhagic) thrombocythemia; D64.9 Anemia, unspecified; M19.90 Unspecified osteoarthritis, unspecified site; Z96.651 Presence of right artificial knee joint; I25.10 Atherosclerotic heart disease of native coronary artery without angina pectoris; I10 Essential (primary) hypertension; E03.9 Hypothyroidism, unspecified; G47.00 Insomnia, unspecified; K59.00 Constipation, unspecified; N19 Unspecified kidney failure; R58 Hemorrhage, not elsewhere classified; R53.81 Other malaise; T50.995A Adverse effect of other drugs, medicaments and biological substances, initial encounter; D70.9 Neutropenia, unspecified; Y92.89 Other specified places as the place of occurrence of the external cause; Z74.01 Bed confinement status; Z86.718 Personal history of other venous thrombosis and embolism; Z85.3 Personal history of malignant neoplasm of breast; Z90.11 Acquired absence of right breast and nipple; Z88.5 Allergy status to narcotic agent; R07.9 Chest pain, unspecified; Z88.8 Allergy status to other drugs, medicaments and biological substances; Z82.0 Family history of epilepsy and other diseases of the nervous system; Z82.3 Family history of stroke; Z80.0 Family history of malignant neoplasm of digestive organs; Z84.89 Family history of other specified conditions; Z83.3 Family history of diabetes mellitus; Z80.8 Family history of malignant neoplasm of other organs or systems; Z82.49 Family history of ischemic heart disease and other diseases of the circulatory system
CPT/HCPCS: 36415; 36430; 70450; 71045; 80053; 82270; 82550; 82948; 83880; 84145; 84484; 85014; 85018; 85025; 85027; 85610; 85730; 86850; 86900; 86901; 86922; 88184; 88185; 93005; 93970; G0378; J3490; J7050; P9016; P9034